=== PATIENT | female | born 1980 | race Caucasian/White ===

== ENCOUNTER 2017-04-03 20:13 | Outpatient (CLI) | payer OTHER ==
[~2017-04-03] VITALS: Ht 160 cm; Wt 80.0 kg
[2017-04-03 20:33] VITALS: BP 137/77
[2017-04-03] MEDS ORDERED: PRENTAB9 PO (20:37)
[2017-04-03] MEDS ORDERED: VITA100037 PO (20:37)
[2017-04-03] MEDS ORDERED: LR 1,000 ML IV SCH (21:00)
[2017-04-03 21:09] LABS: MEAN CORPUSCULAR HGB CONC 34.3 g/dl (32.0-36.5); MEAN CORPUSCULAR VOLUME 93.4 fl (80.0-96.0); RED CELL DISTRIBUTION WIDTH 13.2 % (11.5-14.5); WHITE BLOOD COUNT 14.6 K/mm3 (4.0-10.0)
[2017-04-03 21:17] LABS: INR 0.95
[2017-04-04 01:04] VITALS: BP 111/66
[2017-04-04 04:44] VITALS: BP 110/67
== END 2017-04-04 08:50 | disposition home or self-care (01) ==
LOC: M LDO 20:13
PROVIDERS: ATTEND Student in an Organized Health Care Education/Training Program
DX: O47.1 False labor at or after 37 completed weeks of gestation (principal); W19.XXXA Unspecified fall, initial encounter; Y92.9 Unspecified place or not applicable; Y93.9 Activity, unspecified; Y99.9 Unspecified external cause status; O34.219 Maternal care for unspecified type scar from previous cesarean delivery; O99.343 Other mental disorders complicating pregnancy, third trimester; Z3A.37 37 weeks gestation of pregnancy

== ENCOUNTER 2017-04-20 05:17 | Inpatient (IN) | payer OTHER ==
[~2017-04-20] VITALS: Ht 157.5 cm; Wt 84.8 kg
[~2017-04-20 05:17] MED LIST: PRENTAB9 PO; TYLE500T78 PO; VITA100067 PO
[2017-04-20] MEDS ORDERED: BICITRA 30ML SOLN UDC PO ONE (05:30)
[2017-04-20] MEDS ORDERED: LR 1,000 ML IV SCH ×2 (05:30→09:45)
[2017-04-20] MEDS ORDERED: AZITHROMYCIN INJ 500 MG, VIAL MATE ADAPTER 1 EACH in D5W 250 ML IV ONE (05:30)
[2017-04-20 06:22] LABS: MEAN CORPUSCULAR HEMOGLOBIN 32.6 pg (27.0-33.0); MEAN CORPUSCULAR VOLUME 93.4 fl (80.0-96.0); RED CELL DISTRIBUTION WIDTH 13.5 % (11.5-14.5); WHITE BLOOD COUNT 9.5 K/mm3 (4.0-10.0)
[2017-04-20] MEDS ORDERED: ONDANSETRON 4MG/2ML VIAL (J2405) As Ordered ONE (08:19)
[2017-04-20] MEDS ORDERED: ePHEDrine SULFATE 25 MG/5 ML(5MG/ML) SYRINGE As Ordered ONE (08:19)
[2017-04-20] MEDS ORDERED: ATROPINE SULF 1MG/10ML SYRINGE (J0461) As Ordered ONE (08:19)
[2017-04-20] MEDS ORDERED: KETOROLAC 60 MG/2 ML VIAL (J1885) As Ordered ONE (08:19)
[2017-04-20] MEDS ORDERED: MORPHINE PRES-FREE INJ 10 MG/10 ML VIAL (J2274) As Ordered ONE (08:19)
[2017-04-20] MEDS ORDERED: OXYTOCIN INJ 10 UNITS/ML VIAL (J2590) As Ordered ONE (08:19)
[2017-04-20] MEDS ORDERED: PHENYLephrine HCL 500 MCG/5 ML (100MCG/ML) SYRINGE (J2370) As Ordered ONE (08:19)
[2017-04-20] MEDS ORDERED: NALBUPHINE HCL 10 MG/ML AMP (J2300) IV PRN (08:25)
[2017-04-20] MEDS ORDERED: ONDANSETRON 4MG/2ML VIAL (J2405) IV PRN ×3 (08:25→09:45)
[2017-04-20] MEDS ORDERED: NALOXONE INJ 0.4 MG/1 ML VIAL (J2310) IV PRN ×2 (08:25)
[2017-04-20] MEDS ORDERED: METOCLOPRAMIDE INJ 10MG/2ML VIAL (J2765) IV PRN ×2 (08:25→09:45)
[2017-04-20] MEDS ORDERED: MIDAZOLAM INJ 2 MG/2 ML VIAL (J2250) As Ordered ONE ×2 (08:26→08:40)
[2017-04-20] MEDS ORDERED: KETAMINE HCL 200 MG/20 ML VIAL As Ordered ONE (08:29)
[2017-04-20] MEDS ORDERED: fentaNYL 100 MCG/2 ML INJECTION (J3010) As Ordered ONE ×2 (08:39→09:22)
[2017-04-20] MEDS ORDERED: PROMETHAZINE 25 MG TAB PO PRN (09:15)
[2017-04-20] MEDS ORDERED: METHYLERGONOVINE MALEATE 0.2 MG/ML VIAL (J2210) IM PRN (09:15)
[2017-04-20] MEDS ORDERED: RHOGAM 300 MCG (1500 IU) INJ (J2790) IM SCH (09:15)
[2017-04-20] MEDS ORDERED: MEASLES,MUMPS,RUBELLA VACCINE INJ (MMR-II) (90707) SC SCH (09:15)
[2017-04-20] MEDS ORDERED: PERCOCET 5MG/325MG TAB PO PRN (09:45)
[2017-04-20] MEDS ORDERED: fentaNYL 100 MCG/2 ML INJECTION (J3010) IV PRN (09:45)
[2017-04-20 11:00] VITALS: BP 110/65
[2017-04-20 11:30] VITALS: BP 109/70
[2017-04-20] MEDS: PERCOCET 5MG/325MG TAB PO PRN (12:28)
[2017-04-20 12:30] VITALS: BP 121/65
[2017-04-20 13:30] VITALS: BP 119/68
[2017-04-20] MEDS: KETOROLAC 30 MG/ML VIAL (J1885) IV SCH ×2 (15:03→20:28)
[2017-04-20] MEDS: LR 1,000 ML IV SCH (17:01)
[2017-04-20 18:25] VITALS: BP 129/72
[2017-04-20] MEDS: DOCUSATE SODIUM 100 MG CAP PO SCH (20:28)
[2017-04-20 22:00] VITALS: BP 119/57
[2017-04-21] MEDS: PERCOCET 5MG/325MG TAB PO PRN ×4 (00:51→22:07)
[2017-04-21] MEDS: LR 1,000 ML IV SCH ×4 (01:01→17:01)
[2017-04-21 02:00] VITALS: BP 109/58
[2017-04-21] MEDS: KETOROLAC 30 MG/ML VIAL (J1885) IV SCH ×2 (02:53→08:09)
[2017-04-21 05:45] VITALS: BP 127/62
--- NOTE | 2017-04-21 06:32 | IPNPDOC ---
Text Note Date of Service The patient was seen on 04/21/17. NOTE POD1 prog note, s/p uncomplicated ERCS States feeling well, no complaints. No heavy VB. Pain controlled. Voiding, ambulatory. Bonding well. No CP/LP/SOB. VSSAF CTAB RRR Ut at U-2, firm Ext no [employer] CDI, dry nonstained bandage removed a/p: Doing well. Routine postop care, likely d/c tomorrow Sessions VS,Vianney, I+O VSVianney I+O Vital Signs Date Time Temp Pulse Resp B/P (MAP) Pulse Ox O2 Delivery O2 Flow Rate FiO2 04/21/17 05:45 97.6 92 127/62 (83) 04/21/17 02:00 18 100 Room Air I&O- Last 24 Hours up to 6 AM 04/21/17 06:00 Intake Total 940 ml Output Total 2950 ml Balance -2009 ml SESSIONS,NADEEM Fam MD Apr 21, 2017 06:32
[2017-04-21 06:57] LABS: MEAN CORPUSCULAR HEMOGLOBIN 32.7 pg (27.0-33.0); MEAN CORPUSCULAR HGB CONC 34.6 g/dl (32.0-36.5); MEAN CORPUSCULAR VOLUME 94.5 fl (80.0-96.0); RED CELL DISTRIBUTION WIDTH 13.5 % (11.5-14.5); WHITE BLOOD COUNT 9.4 K/mm3 (4.0-10.0)
[2017-04-21] MEDS: DOCUSATE SODIUM 100 MG CAP PO SCH ×2 (08:09→21:08)
[2017-04-21] MEDS: PRENATAL VITAMINS CHEWABLE TABLET PO SCH (08:09)
[2017-04-21 10:27] VITALS: BP 116/65
[2017-04-21 14:00] VITALS: BP 114/72
[2017-04-21] MEDS: IBUPROFEN 800 MG TAB PO SCH ×2 (17:02→23:54)
[2017-04-21 18:08] VITALS: BP 127/73
[2017-04-21 22:00] VITALS: BP 130/74
[2017-04-22] MEDS: LR 1,000 ML IV SCH ×2 (01:01→07:17)
[2017-04-22] MEDS: PERCOCET 5MG/325MG TAB PO PRN ×2 (02:07→06:33)
[2017-04-22 06:06] VITALS: BP 139/78
[2017-04-22] MEDS: DOCUSATE SODIUM 100 MG CAP PO SCH (07:57)
[2017-04-22] MEDS: IBUPROFEN 800 MG TAB PO SCH (07:57)
[2017-04-22] MEDS: PRENATAL VITAMINS CHEWABLE TABLET PO SCH (07:57)
[2017-04-22] MEDS ORDERED: COLA100C5 PO (09:12)
[2017-04-22] MEDS ORDERED: OXYC1TAB23 PO (09:14)
[2017-04-22] MEDS ORDERED: IBUP-1114 PO (09:14)
== END 2017-04-22 11:00 | disposition home or self-care (01) | DRG 766 ==
LOC: M LDI 05:17 → M OBS 11:03
PROVIDERS: ADMIT Obstetrics & Gynecology; ATTEND Obstetrics & Gynecology
PROC: 0UB70ZZ Excision of Bilateral Fallopian Tubes, Open Approach (ICD-10-PCS; 2017-04-20)
PROC: 10D00Z1 Extraction of Products of Conception, Low, Open Approach (ICD-10-PCS; principal; 2017-04-20 07:30)
DX: O34.211 Maternal care for low transverse scar from previous cesarean delivery (principal); Z37.0 Single live birth; Z3A.39 39 weeks gestation of pregnancy